=== PATIENT | male | born 1935 | race Caucasian/White ===

== ENCOUNTER → 2016-05-20 | Outpatient (CLI) | payer OTHER, BC | LOC: BHFA 10:00 | PROVIDERS: ATTEND Internal Medicine Interventional Cardiology | DX: I25.10 Atherosclerotic heart disease of native coronary artery without angina pectoris (principal); I34.2 Nonrheumatic mitral (valve) stenosis; I34.0 Nonrheumatic mitral (valve) insufficiency; E78.5 Hyperlipidemia, unspecified ==

== ENCOUNTER → 2017-05-21 | Outpatient (CLI) | payer OTHER, BC | LOC: BHFA 10:00 | PROVIDERS: ATTEND Internal Medicine | DX: I25.10 Atherosclerotic heart disease of native coronary artery without angina pectoris (principal) ==

== ENCOUNTER → 2018-06-01 | Outpatient (CLI) | payer OTHER, BC | LOC: BHFA 10:00 | PROVIDERS: ATTEND Internal Medicine Cardiovascular Disease | DX: I05.0 Rheumatic mitral stenosis (principal) ==

== ENCOUNTER 2018-08-26 08:02 | Day surgery (SDC) | payer OTHER, BC | END 2018-08-26 14:00 | disposition home or self-care (01) | LOC: FCATH 08:02 ==

== ENCOUNTER → 2018-09-07 | Outpatient (CLI) | payer OTHER, BC | LOC: FIMAGING 09:51 ==

== ENCOUNTER 2018-09-09 06:22 | Inpatient (IN) | payer OTHER, BC | END 2018-09-14 16:37 | disposition home or self-care (01) | LOC: F2N 06:22 → F2W 09-10 16:19 → F2N 14:11 ==